=== PATIENT | female | born 1980 | race Two or more races ===

== ENCOUNTER 2023-12-20 19:37 | Emergency (ER) | payer MEDICAID ==
[~2023-12-20] VITALS: Ht 160 cm; Wt 77.3 kg
[2023-12-20 20:36] LABS: BASOPHILS % (AUTO) 0.3 % (0-1); EOSINOPHILS # (AUTO) 0.5 X10'3 (0-0.9); EOSINOPHILS % (AUTO) 5.8 % (0-6); HEMATOCRIT 36.3 % (35.0-45.0); HEMOGLOBIN 11.9 g/dl (12.0-16.0); LYMPHOCYTES # (AUTO) 1.2 X10'3 (1.1-4.8); LYMPHOCYTES % (AUTO) 15.1 % (21-51); MEAN CORPUSCULAR HEMOGLOBIN 27.4 PG (27.0-31.0); MEAN CORPUSCULAR HGB CONC 32.7 g/dL (33.0-36.5); MEAN CORPUSCULAR VOLUME 83.7 FL (78-98); MEAN PLATELET VOLUME 8.3 FL (7.4-10.4); MONOCYTES # (AUTO) 0.9 X10'3 (0-0.9); MONOCYTES % (AUTO) 10.6 % (2-12); NEUTROPHILS # (AUTO) 5.6 X10'3 (1.8-7.7); NEUTROPHILS % (AUTO) 68.2 % (42-75); PLATELET COUNT 276 X10'3 (140-440); RED BLOOD COUNT 4.33 X10'6 (4.20-5.60); RED CELL DISTRIBUTION WIDTH 15.5 % (11.5-14.5); WHITE BLOOD COUNT 8.2 X10'3 (4.5-11.0)
[2023-12-20] MEDS: ketorolac trometh. 30mg/ml inj. IV ONE (20:44)
[2023-12-20] MEDS: ondansetron 4mg rapidly disintigrating tab PO ONE (20:44)
[2023-12-20] MEDS: acetaminophen 325mg tablet PO ONE (20:44)
[2023-12-20 20:51] LABS: ALANINE AMINOTRANSFERASE 35 U/L (12-78); ALBUMIN 3.5 G/DL (3.4-5.0); ALBUMIN/GLOBULIN RATIO 0.9 (1.1-1.5); ALKALINE PHOSPHATASE 90 IU/L (46-116); ANION GAP 5 (8-16); ASPARTATE AMINO TRANSFERASE 21 U/L (10-37); BILIRUBIN,TOTAL 0.4 MG/DL (0.1-1.0); BLOOD UREA NITROGEN 9 MG/DL (7-18); BUN/CREATININE RATIO 8.7 (10.0-20.0); CALCIUM 9.5 MG/DL (8.5-10.1); CHLORIDE 102 MMOL/L (99-107); CREATININE 1.03 MG/DL (0.40-0.90); GLUCOSE 127 MG/DL (70-104); LIPASE 41 U/L (16-77); POTASSIUM 3.6 MMOL/L (3.5-5.1); SODIUM 135 MMOL/L (135-145); TOTAL CARBON DIOXIDE 28.1 MMOL/L (24-32); TOTAL PROTEIN 7.6 G/DL (6.4-8.2); eCRCL 58 ML/MIN; eGFR 58 ML/MIN
[2023-12-20 20:58] LABS: BILIRUBIN,URINE NEGATIVE (Neg); CLARITY,URINE CLOUDY (Clear); COLOR,URINE YELLOW (Yellow); GLUCOSE, URINE NEGATIVE (Neg); KETONES,URINE NEGATIVE (Neg); LEUKOCYTE ESTERASE ,URINE SMALL (Neg); NITRITES, URINE NEGATIVE (Neg); OCCULT BLOOD,URINE LARGE (Neg); PROTEIN,URINE NEGATIVE (Neg); UROBILINOGEN,URINE 0.2 E.U/dL (0.2-1.0)
[2023-12-20 20:59] LABS: URINE HCG NEGATIVE (NEG)
[2023-12-20] MEDS ORDERED: NO HOME MEDS (21:02)
[2023-12-20 21:05] LABS: UA COLLECTION TYPE CLN CATCH MIDSTREAM
[2023-12-20 21:07] LABS: SQUAMOUS EPITHELIAL CELL,UR MODERATE /LPF (FEW)
[2023-12-20 21:09] LABS: BACTERIA,URINE FEW /HPF (Neg); RBC,URINE 50-100 /HPF (0-2)
[2023-12-20 22:06] VITALS: BP 115/71; PULSE 85; RESP 16; TEMP 98.5; O2SAT 98
[2023-12-20] MEDS ORDERED: FAMO-129 PO (22:06)
[2023-12-20] MEDS ORDERED: POLY17PO10 PO (22:06)
[2023-12-20] MEDS ORDERED: BISA-79 PO (22:06)
[2023-12-20] MEDS: famotidine 20mg tablet PO ONE (22:17)
[2023-12-20] MEDS: bisacodyl 5mg tablet.DR PO ONE (22:17)
== END 2023-12-20 22:26 | disposition home or self-care (01) ==
LOC: ER 19:38
DX: R10.13 Epigastric pain (principal); R11.0 Nausea
CPT/HCPCS: 36415; 76700; 80053; 81001; 81025; 83690; 84145; 85025; 87088; 96374; 99285; J1885; J7030

== ENCOUNTER 2024-07-08 18:25 | Emergency (ER) | payer MEDICAID ==
[~2024-07-08] VITALS: Ht 160 cm; Wt 72.7 kg
[~2024-07-08 18:25] MED LIST: BISA-79 PO; FAMO-129 PO; NO HOME MEDS
[2024-07-08 18:31] VITALS: BP 151/85; PULSE 88; TEMP 97.7; O2SAT 100
[2024-07-08] MEDS ORDERED: ONDA-243 PO (20:37)
[2024-07-08] MEDS ORDERED: IBUP-1984 PO (20:37)
[2024-07-08 20:45] VITALS: RESP 18
[2024-07-08] MEDS: ketorolac trometh 15mg/ml vial 15 MG/ML ML IM ONE (20:45)
== END 2024-07-08 20:49 | disposition home or self-care (01) ==
LOC: ER 18:26
DX: G43.909 Migraine, unspecified, not intractable, without status migrainosus (principal); R11.0 Nausea; Z79.899 Other long term (current) drug therapy
CPT/HCPCS: 93005; 96372; 99283; J1885